=== PATIENT | male | born 1960 | race African-American/Black ===

== ENCOUNTER 2022-07-26 16:01 | Inpatient (IN) | payer BC ==
[~2022-07-26] VITALS: Ht 180.3 cm; Wt 102.7 kg
[2022-07-26] MEDS ORDERED: IOHEXOL-350 100 ML BOTTLE ONE (17:04)
[2022-07-26] MEDS ORDERED: ASPIRIN 81MG TABLET PO ONE (17:15)
[2022-07-26 17:46] LABS: BASOPHILS % 0.6 % (0.0-2.0); CLARITY URINE CLEAR (CLEAR); COLOR URINE YELLOW (YELLOW); EOSINOPHILS % 1.1 % (0.0-5.0); HEMATOCRIT. 40.9 % (42.0-52.0); HEMOGLOBIN. 13.8 g/dL (14.0-18.0); KETONES URINE NEGATIVE (NEGATIVE); LEUKOCYTE ESTERASE URINE NEGATIVE (NEGATIVE); LYMPHOCYTES % 27.5 % (20.0-50.0); MEAN CORPUSCULAR HEMOGLOBIN 28.6 pg (28.0-32.0); MEAN CORPUSCULAR VOLUME 84.8 fL (80.0-94.0); MEAN PLATELET VOLUME 8.3 fl (7.4-10.4); MONOCYTES % 6.6 % (2.0-8.0); NEUTROPHILS % 64.2 % (40.0-76.0); NITRITE URINE NEGATIVE (NEGATIVE); OCCULT BLOOD URINE NEGATIVE (NEGATIVE); PH URINE 7.5 (4.5-8.0); PLATELET 256 x1000/uL (130-400); PROTEIN URINE NEGATIVE (NEGATIVE); RED BLOOD CELL COUNT 4.83 mill/uL (4.7-6.1); RED CELL DISTRIBUTION WIDTH 14.7 % (11.6-14.6); UROBILINOGEN URINE 0.2 E.U./dL (0.2-1.0)
[2022-07-26 17:54] LABS: CHLORIDE 105 mEq/L (98-107)
[2022-07-26 18:00] LABS: *AMPHETAMINES SCREEN URINE NEGATIVE (NEGATIVE); *BARBITURATES SCREEN URINE NEGATIVE (NEGATIVE); *BENZODIAZEPINES SCREEN URINE NEGATIVE (NEGATIVE); *COCAINE SCREEN URINE NEGATIVE (NEGATIVE); CANNABINOID URINE SCREEN NEGATIVE (NEGATIVE); METHADONE URINE SCREEN NEGATIVE (NEGATIVE); OPIATES URINE SCREEN NEGATIVE (NEGATIVE); PHENCYCLIDINE URINE SCREEN NEGATIVE (NEGATIVE)
[2022-07-26 18:03] LABS: ETHANOL BLOOD < 10 mg/dL
[2022-07-27] MEDS ORDERED: MAGNESIUM/ALUMINUM HYDROXIDE/SIMETHICONE 30ML UDC PO PRN
[2022-07-27] MEDS ORDERED: IPRATROPIUM/ALBUTEROL 0.5-3(2.5)MG/3ML NEB HHN PRN
[2022-07-27] MEDS ORDERED: GUAIFENESIN 200MG/10ML SUGAR FREE UDC PO PRN
[2022-07-27] MEDS ORDERED: DOCUSATE SODIUM 100MG CAPSULE PO PRN
[2022-07-27] MEDS ORDERED: ACETAMINOPHEN 325MG TABLET PO PRN ×2
[2022-07-27] MEDS ORDERED: ONDANSETRON HCL 4MG/2ML INJ IV PRN
[2022-07-27] MEDS ORDERED: DEXTROSE 50% WATER 50ML SYRINGE IV ONE
[2022-07-27] MEDS: CLONIDINE 0.1MG TABLET PO PRN ×2 (01:34→10:07)
[2022-07-27 01:57] LABS: D-DIMER 0.2 mg/L FEU (<0.50); PROTHROMBIN TIME 10.8 sec (9.6-11.0)
[2022-07-27] MEDS ORDERED: AMLODIPINE 5MG TABLET PO NR (02:00)
[2022-07-27 02:01] LABS: PHOSPHORUS 2.8 mg/dL (2.5-4.9)
[2022-07-27 02:23] LABS: FOLIC ACID (FOLATE) SERUM 12.6 ng/mL (>5.38)
[2022-07-27 05:25] LABS: BASOPHILS % 0.5 % (0.0-2.0); HEMATOCRIT. 37.6 % (42.0-52.0); HEMOGLOBIN. 12.7 g/dL (14.0-18.0); MEAN CORPUSCULAR HEMOGLOBIN 28.3 pg (28.0-32.0); MEAN CORPUSCULAR VOLUME 83.7 fL (80.0-94.0); MEAN PLATELET VOLUME 8.3 fl (7.4-10.4); MONOCYTES % 8.2 % (2.0-8.0); NEUTROPHILS % 55.3 % (40.0-76.0); PLATELET 287 x1000/uL (130-400); RED BLOOD CELL COUNT 4.49 mill/uL (4.7-6.1); RED CELL DISTRIBUTION WIDTH 14.8 % (11.6-14.6)
[2022-07-27 05:30] LABS: CHLORIDE 105 mEq/L (98-107)
[2022-07-27 05:39] LABS: CREATINE KINASE MB FRACTION 2.4 ng/mL (0.5-3.6)
[2022-07-27 05:45] LABS: HDL CHOLESTEROL 53 mg/dL (40-59); LDL CHOLESTEROL 78 mg/dL (5-100); T4 FREE 0.84 ng/dL (0.76-1.46)
[2022-07-27] MEDS ORDERED: KCL 20MEQ/100ML PREMIX 100 ML IV SCH (07:00)
[2022-07-27] MEDS ORDERED: ENOXAPARIN 40MG/0.4ML SYR SUBCUT SCH (09:00)
[2022-07-27] MEDS: ASPIRIN 81MG TABLET PO SCH (09:32)
[2022-07-27] MEDS: PANTOPRAZOLE SODIUM 40 MG/VIAL IV SCH (09:32)
[2022-07-27 16:00] VITALS: BP 151/100
[2022-07-27 16:49] LABS: CREATINE KINASE MB FRACTION 2.1 ng/mL (0.5-3.6)
[2022-07-27 16:56] VITALS: BP 151/100
[2022-07-27] MEDS ORDERED: DEXTROSE 50% WATER 50ML SYRINGE IV PRN (17:00)
[2022-07-27 20:37] VITALS: BP 160/97
[2022-07-27] MEDS: INSULIN LISPRO 100 UNITS/ML SUBCUT SCH (21:00)
[2022-07-27] MEDS: BLOOD SUGAR DIAGNOSTIC STRIP TEST SCH (21:00)
[2022-07-27 21:14] VITALS: BP 169/106
[2022-07-27] MEDS: METFORMIN HCL 500MG TABLET PO SCH (21:16)
[2022-07-27] MEDS: ENOXAPARIN 30MG/0.3ML SYR SUBCUT SCH (21:16)
[2022-07-27] MEDS: ATORVASTATIN CALCIUM 40MG TABLET PO SCH (21:17)
[2022-07-27] MEDS ORDERED: POTASSIUM CHLORIDE 20MEQ TABLET SR PO NR ×2 (22:30)
[2022-07-27 22:37] VITALS: BP 149/92
[2022-07-28] VITALS (7 sets, daily range): BP systolic 108–187; BP diastolic 77–98
[2022-07-28 00:24] LABS: CHLORIDE 105 mEq/L (98-107)
[2022-07-28] MEDS: INSULIN LISPRO 100 UNITS/ML SUBCUT SCH ×4 (06:47→21:00)
[2022-07-28] MEDS: BLOOD SUGAR DIAGNOSTIC STRIP TEST SCH ×4 (06:47→21:00)
[2022-07-28] MEDS: ASPIRIN 81MG TABLET PO SCH (08:10)
[2022-07-28] MEDS: ENOXAPARIN 30MG/0.3ML SYR SUBCUT SCH ×2 (08:10→21:04)
[2022-07-28] MEDS: PANTOPRAZOLE SODIUM 40 MG/VIAL IV SCH (08:10)
[2022-07-28] MEDS ORDERED: AMLODIPINE 5MG TABLET PO SCH (09:00)
[2022-07-28] MEDS ORDERED: LACTULOSE 20G/30ML UDC PO PRN (11:00)
[2022-07-28] MEDS: CLONIDINE 0.1MG TABLET PO PRN (13:37)
[2022-07-28 14:19] LABS: HEMATOCRIT 39.6 % (42.0-52.0); HEMOGLOBIN 13.2 g/dL (14.0-18.0); MEAN CORPUSCULAR HEMOGLOBIN 28.4 pg (28.0-32.0); MEAN CORPUSCULAR VOLUME 85.1 fL (80.0-94.0); PLATELET 273 x1000/uL (130-400); RED BLOOD CELL COUNT 4.65 mill/uL (4.7-6.1); RED CELL DISTRIBUTION WIDTH 14.5 % (11.6-14.6)
[2022-07-28 14:47] LABS: CHLORIDE 106 mEq/L (98-107)
[2022-07-28] MEDS ORDERED: HYDRALAZINE 20MG/ML VIAL IV NR (17:15)
[2022-07-28] MEDS: METFORMIN HCL 500MG TABLET PO SCH (21:04)
[2022-07-28] MEDS: ATORVASTATIN CALCIUM 40MG TABLET PO SCH (21:05)
[2022-07-28] MEDS: HYDRALAZINE HCL 50MG TABLET PO SCH (21:05)
[2022-07-28] MEDS ORDERED: HYDRALAZINE HCL 10MG TABLET PO SCH (22:00)
[2022-07-29 00:23] VITALS: BP 161/90
[2022-07-29 04:09] VITALS: BP 167/99
[2022-07-29] MEDS: CLONIDINE 0.1MG TABLET PO PRN (04:13)
[2022-07-29] MEDS: HYDRALAZINE HCL 50MG TABLET PO SCH (06:08)
[2022-07-29] MEDS: BLOOD SUGAR DIAGNOSTIC STRIP TEST SCH (06:08)
[2022-07-29] MEDS ORDERED: METF-414 PO (06:51)
[2022-07-29] MEDS ORDERED: ASPI-1160 PO (06:51)
[2022-07-29] MEDS ORDERED: AMLO10TA80 PO (06:51)
[2022-07-29] MEDS ORDERED: LIP40 PO (06:51)
[2022-07-29] MEDS ORDERED: HYDR-4135 PO ×2 (06:51→09:02)
[2022-07-29] MEDS ORDERED: CLOP-31 MT (06:51)
[2022-07-29 07:14] LABS: HEMATOCRIT 38.5 % (42.0-52.0); HEMOGLOBIN 12.9 g/dL (14.0-18.0); MEAN CORPUSCULAR HEMOGLOBIN 28.1 pg (28.0-32.0); MEAN CORPUSCULAR VOLUME 83.7 fL (80.0-94.0); PLATELET 273 x1000/uL (130-400); RED CELL DISTRIBUTION WIDTH 14.6 % (11.6-14.6)
[2022-07-29] MEDS: INSULIN LISPRO 100 UNITS/ML SUBCUT SCH (07:20)
[2022-07-29 07:25] LABS: CHLORIDE 109 mEq/L (98-107)
[2022-07-29 07:58] VITALS: BP 170/105
[2022-07-29] MEDS: ASPIRIN 81MG TABLET PO SCH (08:03)
[2022-07-29] MEDS: ENOXAPARIN 30MG/0.3ML SYR SUBCUT SCH (08:03)
[2022-07-29] MEDS ORDERED: LOSARTAN POTASSIUM 100 MG TABLET PO SCH (09:00)
[2022-07-29] MEDS ORDERED: FAMOTIDINE 20MG TABLET PO SCH (09:00)
[2022-07-29] MEDS ORDERED: AMLODIPINE 10MG TABLET PO SCH (09:00)
[2022-07-29] MEDS ORDERED: POTASSIUM CHLORIDE 20MEQ/PACKET PO NR (09:00)
[2022-07-29] MEDS ORDERED: LOSA100T32 MT (09:01)
[2022-07-29 09:20] VITALS: BP 174/118
== END 2022-07-29 09:45 | disposition home or self-care (01) | DRG 69 ==
LOC: ER 16:30 → MICUSO 20:57 → 3WST 07-27 15:44
PROVIDERS: ADMIT Hospitalist; ATTEND Hospitalist
DX: G45.9 Transient cerebral ischemic attack, unspecified (principal); I16.0 Hypertensive urgency; I10 Essential (primary) hypertension; K59.00 Constipation, unspecified; D64.9 Anemia, unspecified; E11.9 Type 2 diabetes mellitus without complications; I70.90 Unspecified atherosclerosis; E87.6 Hypokalemia; R00.1 Bradycardia, unspecified; M47.816 Spondylosis without myelopathy or radiculopathy, lumbar region; Z85.46 Personal history of malignant neoplasm of prostate; Z79.84 Long term (current) use of oral hypoglycemic drugs
CPT/HCPCS: 36415; 70496; 70498; 71045; 72148; 80048; 80053; 80061; 80305; 80320; 81003; 82550; 82553; 82607; 82652; 82728; 82746; 82962; 83036; 83540; 83550; 83735; 83880; 84100; 84153; 84439; 84443; 84481; 84484; 85025; 85027; 85379; 92610; 93005; 93306; 93880; 93970; 97162; 97166; 99291; C9113; J0360; J1650; J3480; Q9967; G0103; G0480

== ENCOUNTER 2023-05-24 17:06 | Inpatient (IN) | payer BC ==
[2023-05-24] VITALS (22 sets, daily range): BP systolic 162–195; BP diastolic 89–109; PULSE 56–72; RESP 11–20; TEMP 98; O2SAT 97
[~2023-05-24] VITALS: Ht 180.3 cm; Wt 102.1 kg
[~2023-05-24 17:06] MED LIST: AMLO10TA80 PO; ASPI-1160 PO; CLOP-31 MT; HYDR-4135 PO; LIP40 PO; LOSA100T33 MT; METF-414 PO
[2023-05-24] MEDS ORDERED: LABETALOL 5MG/ML SYR 20 MG/4 ML SYRINGE IV ONE ×2 (18:00→18:30)
[2023-05-24] MEDS ORDERED: TENECTEPLASE 50MG/VIAL IV ONE (18:00)
[2023-05-24 18:13] LABS: BASOPHILS % 0.4 % (0.0-2.0); EOSINOPHILS % 0.5 % (0.0-5.0); HEMATOCRIT. 38.5 % (42.0-52.0); HEMOGLOBIN. 12.8 g/dL (14.0-18.0); MEAN CORPUSCULAR HEMOGLOBIN 28.6 pg (28.0-32.0); MEAN CORPUSCULAR HGB CONC 33.3 g/dL (31.0-37.0); MEAN CORPUSCULAR VOLUME 85.8 fL (80.0-94.0); MEAN PLATELET VOLUME 7.7 fl (7.4-10.4); MONOCYTES % 7.5 % (2.0-8.0); NEUTROPHILS % 72.6 % (40.0-76.0); PLATELET 296 x1000/uL (130-400); RED BLOOD CELL COUNT 4.48 mill/uL (4.7-6.1); RED CELL DISTRIBUTION WIDTH 14.2 % (11.6-14.6); WHITE BLOOD COUNT 7.8 x1000/uL (4.5-11.0)
[2023-05-24] MEDS ORDERED: *TENECTEPLASE FOR AIS XX SCH (18:15)
[2023-05-24 18:31] LABS: CLARITY URINE CLEAR (CLEAR); COLOR URINE YELLOW (YELLOW); GLUCOSE URINE 3+ (NEGATIVE); KETONES URINE NEGATIVE (NEGATIVE); LEUKOCYTE ESTERASE URINE NEGATIVE (NEGATIVE); NITRITE URINE NEGATIVE (NEGATIVE); OCCULT BLOOD URINE NEGATIVE (NEGATIVE); PH URINE 7.5 (4.5-8.0); PROTEIN URINE NEGATIVE (NEGATIVE); SPECIFIC GRAVITY URINE 1.034 (1.005-1.030); UROBILINOGEN URINE 0.2 E.U./dL (0.2-1.0)
[2023-05-24 18:33] LABS: CHLORIDE 105 mEq/L (98-107); INDEX HEMOLYSI 1 (1-3); INDEX ICTERIC 1 (1-4); INDEX LIPEMIC 1 (1-3); POTASSIUM 3.2 mEq/L (3.5-5.1); SODIUM 140 mEq/L (136-145)
[2023-05-24 18:34] LABS: BACTERIA URINE NONE SEEN; RBC URINE NONE SEEN /hpf (0-2); SQUAMOUS EPITHELIAL CELL URINE NONE SEEN /lpf (RARE/1+); WBC URINE NONE SEEN /hpf (0-2); YEAST URINE NONE SEEN
[2023-05-24 18:42] LABS: *AMPHETAMINES SCREEN URINE NEGATIVE (NEGATIVE); *BARBITURATES SCREEN URINE NEGATIVE (NEGATIVE); *BENZODIAZEPINES SCREEN URINE NEGATIVE (NEGATIVE); *COCAINE SCREEN URINE NEGATIVE (NEGATIVE); CANNABINOID URINE SCREEN NEGATIVE (NEGATIVE); ECSTASY MDMA SCREEN URINE NEGATIVE (NEGATIVE); OPIATES URINE SCREEN NEGATIVE (NEGATIVE); PHENCYCLIDINE URINE SCREEN NEGATIVE (NEGATIVE)
[2023-05-24 18:43] LABS: ALANINE AMINOTRANSFERASE 27 IU/L (13-61); ALBUMIN 3.9 g/dL (3.4-5.0); ASPARTATE AMINOTRANSFERASE 21 IU/L (15-37); BILIRUBIN TOTAL 0.3 mg/dL (0.1-1.0); CALCIUM 8.3 mg/dL (8.5-10.1); CARBON DIOXIDE 29 mEq/L (21-32); CREATININE 1.3 mg/dL (0.6-1.3); ETHANOL BLOOD < 10 mg/dL (<10); GLUCOSE 134 mg/dL (70-105); PROTEIN TOTAL 7.2 g/dL (6.0-8.3); TROPONIN I HIGH SENSITIVITY 13 ng/L (<78); UREA NITROGEN BLOOD 19 mg/dL (7-21)
[2023-05-24] MEDS ORDERED: SODIUM CHLORIDE 0.9% IV PRN (19:15)
[2023-05-24] MEDS ORDERED: LABETALOL HCL IV PRN (19:15)
[2023-05-24] MEDS ORDERED: SODIUM CHLORIDE 0.9% IV ONE (19:15)
[2023-05-24] MEDS ORDERED: LABETALOL HCL IV ONE (19:15)
[2023-05-24 19:32] LABS: METHADONE URINE SCREEN INVALID (NEGATIVE)
[2023-05-24] MEDS ORDERED: IOHEXOL-350 100 ML BOTTLE ONE (19:34)
[2023-05-24] MEDS: SODIUM CHLORIDE 0.9% IV PRN ×3 (19:35→23:35)
[2023-05-24] MEDS: LABETALOL HCL IV PRN ×3 (19:35→23:35)
[2023-05-24] MEDS ORDERED: NICARDIPINE 40MG/200ML PREMIX 200 ML IV PRN (20:00)
[2023-05-24] MEDS ORDERED: MAGNESIUM/ALUMINUM HYDROXIDE/SIMETHICONE 30ML UDC PO PRN (20:30)
[2023-05-24] MEDS ORDERED: IPRATROPIUM/ALBUTEROL 0.5-3(2.5)MG/3ML NEB HHN PRN (20:30)
[2023-05-24] MEDS ORDERED: NA PHOS,M-B/NA PHOS,DI-BA ENEMA 118ML PR PRN (20:30)
[2023-05-24] MEDS ORDERED: ONDANSETRON HCL 4MG/2ML INJ IV PRN (20:30)
[2023-05-24] MEDS ORDERED: GUAIFENESIN 200MG/10ML SUGAR FREE UDC PO PRN (20:30)
[2023-05-24] MEDS ORDERED: ACETAMINOPHEN 325MG TABLET PO PRN ×2 (20:30)
[2023-05-24] MEDS ORDERED: DOCUSATE SODIUM 100MG CAPSULE PO PRN (20:30)
[2023-05-24 22:04] LABS: INR 0.9; PROTHROMBIN TIME 10.2 sec (9.6-11.0)
[2023-05-24 22:16] LABS: PHOSPHORUS 3.2 mg/dL (2.5-4.9); T4 FREE 0.95 ng/dL (0.76-1.46); THYROID STIMULATING HORMONE 5.9 uIU/mL (0.36-3.74)
[2023-05-24] MEDS: POTASSIUM CHLORIDE 20MEQ TABLET SR PO SCH (22:32)
[2023-05-25] VITALS (52 sets, daily range): BP systolic 122–185; BP diastolic 60–125; PULSE 59–87; RESP 13–28; TEMP 98–98.6
[2023-05-25 00:30] LABS: CREATINE KINASE MB FRACTION 2.6 ng/mL (0.5-3.6)
[2023-05-25] MEDS: LABETALOL HCL IV PRN ×3 (00:44→07:33)
[2023-05-25] MEDS: SODIUM CHLORIDE 0.9% IV PRN ×3 (00:44→07:33)
[2023-05-25 01:13] LABS: POTASSIUM 3.3 mEq/L (3.5-5.1)
[2023-05-25] MEDS ORDERED: POTASSIUM CHLORIDE 20MEQ TABLET SR PO NR ×2 (03:45→07:45)
[2023-05-25 04:43] LABS: BASOPHILS % 0.2 % (0.0-2.0); EOSINOPHILS % 0.9 % (0.0-5.0); HEMATOCRIT. 38.6 % (42.0-52.0); LYMPHOCYTES % 12.3 % (20.0-50.0); MEAN CORPUSCULAR HEMOGLOBIN 28.6 pg (28.0-32.0); MEAN CORPUSCULAR HGB CONC 33.7 g/dL (31.0-37.0); MEAN CORPUSCULAR VOLUME 84.8 fL (80.0-94.0); MEAN PLATELET VOLUME 7.5 fl (7.4-10.4); MONOCYTES % 7.7 % (2.0-8.0); NEUTROPHILS % 78.9 % (40.0-76.0); PLATELET 286 x1000/uL (130-400); RED BLOOD CELL COUNT 4.55 mill/uL (4.7-6.1); RED CELL DISTRIBUTION WIDTH 14.1 % (11.6-14.6); WHITE BLOOD COUNT 7.6 x1000/uL (4.5-11.0)
[2023-05-25 04:55] LABS: CHLORIDE 110 mEq/L (98-107); INDEX HEMOLYSI 1 (1-3); INDEX ICTERIC 1 (1-4); INDEX LIPEMIC 1 (1-3); POTASSIUM 3.3 mEq/L (3.5-5.1); SODIUM 144 mEq/L (136-145)
[2023-05-25 05:05] LABS: ALANINE AMINOTRANSFERASE 28 IU/L (13-61); ALBUMIN 3.6 g/dL (3.4-5.0); ASPARTATE AMINOTRANSFERASE 20 IU/L (15-37); BILIRUBIN TOTAL 0.8 mg/dL (0.1-1.0); CALCIUM 8.6 mg/dL (8.5-10.1); CARBON DIOXIDE 28 mEq/L (21-32); CREATINE KINASE 203 IU/L (39-308); CREATINE KINASE MB FRACTION 2.1 ng/mL (0.5-3.6); CREATININE 1.2 mg/dL (0.6-1.3); GLUCOSE 115 mg/dL (70-105); TROPONIN I HIGH SENSITIVITY 20 ng/L (<78); UREA NITROGEN BLOOD 15 mg/dL (7-21)
[2023-05-25] MEDS ORDERED: FAMOTIDINE 20MG/2ML VIAL IV SCH (09:00)
[2023-05-25] MEDS: POTASSIUM CHLORIDE 20MEQ TABLET SR PO SCH (09:16)
[2023-05-25] MEDS ORDERED: SODIUM CHLORIDE 0.9% IV PRN (12:30)
[2023-05-25] MEDS ORDERED: LABETALOL HCL IV PRN (12:30)
[2023-05-25] MEDS ORDERED: HYDRALAZINE 20MG/ML VIAL IV PRN ×2 (14:30→15:45)
[2023-05-25] MEDS ORDERED: DEXTROSE 50% WATER 50ML SYRINGE IV PRN (14:30)
[2023-05-25] MEDS: BLOOD SUGAR DIAGNOSTIC STRIP TEST SCH ×2 (16:40→20:58)
[2023-05-25] MEDS: INSULIN LISPRO 100 UNITS/ML SUBCUT SCH ×2 (16:42→21:06)
[2023-05-25] MEDS ORDERED: ATORVASTATIN CALCIUM 40MG TABLET PO SCH (21:00)
[2023-05-25] MEDS ORDERED: AMLODIPINE 5MG TABLET PO SCH (21:00)
[2023-05-26] MEDS ORDERED: AMLODIPINE 10MG TABLET PO SCH (09:00)
== END 2023-05-25 23:40 | disposition short-term general hospital (02) | DRG 65 ==
LOC: ER 17:06 → MICUSO 18:03 → EDBEDREQSVC 18:13 → EDBEDREQTM 18:13 → EDBEDREQ 18:13
PROVIDERS: ADMIT Internal Medicine; ATTEND Internal Medicine
DX: I63.9 Cerebral infarction, unspecified (principal); I16.9 Hypertensive crisis, unspecified; E78.5 Hyperlipidemia, unspecified; E11.9 Type 2 diabetes mellitus without complications; D64.9 Anemia, unspecified; E11.649 Type 2 diabetes mellitus with hypoglycemia without coma; E66.9 Obesity, unspecified; E87.6 Hypokalemia; H35.039 Hypertensive retinopathy, unspecified eye; I10 Essential (primary) hypertension; M48.061 Spinal stenosis, lumbar region without neurogenic claudication; E03.9 Hypothyroidism, unspecified; E83.42 Hypomagnesemia; R29.709 NIHSS score 9; R56.9 Unspecified convulsions; Z68.31 Body mass index [BMI] 31.0-31.9, adult; Z86.73 Personal history of transient ischemic attack (TIA), and cerebral infarction without residual deficits
CPT/HCPCS: 36415; 70496; 70498; 71045; 80053; 80061; 80305; 80320; 81003; 82550; 82553; 82962; 83036; 83540; 83550; 83735; 84100; 84132; 84439; 84443; 84484; 85025; 93005; 93306; 99285; J0360; J1815; J2997; J3490; J7050; Q9967; G0480